=== PATIENT | male | born 1945 | race Caucasian/White ===

== ENCOUNTER 2020-12-24 04:34 | Inpatient (IN) | payer OTHER ==
[2020-12-24] MEDS ORDERED: LACTATED RINGERS SOLUTION 1000 ML INFUS.BAG IV ONE (06:03)
[2020-12-24 06:13] LABS: BASO % 0.4 % (0-2.0); EOS % 0.1 % (0-4.5); HEMATOCRIT 40.7 % (35.4-49); HEMOGLOBIN 13.8 GM/dL (11.7-16.9); LYMPH % 7.6 % (8-40); MCH 28.9 pg (25.7-33.7); MCHC 33.9 g/dl (32.0-35.9); MEAN CELL VOLUME 85.2 fl (80-96); MEAN PLT VOLUME 6.9 fl (7.5-11.1); MONO % 3.9 % (3.8-10.2); PLATELET COUNT 241 K/MM3 (134-434); RBC 4.78 M/mm3 (4.00-5.60); RDW 13.4 % (11.9-15.9); WHITE BLOOD COUNT 11.8 K/mm3 (4.0-10.0)
[2020-12-24 06:26] LABS: INR 0.97 (0.83-1.09)
[2020-12-24 06:27] LABS: POTASSIUM 4.1 mmol/L (3.5-5.1)
[2020-12-24 06:29] LABS: ACTIVATED PTT 33.6 SECONDS (25.2-36.5); CALCIUM 9.5 mg/dL (8.5-10.1)
[2020-12-24 06:30] LABS: BLOOD UREA NITROGEN 14.7 mg/dL (7-18)
[2020-12-24 06:33] LABS: CREATININE 1.2 mg/dL (0.55-1.3)
[2020-12-24 06:34] LABS: BILIRUBIN,TOTAL 0.5 mg/dL (0.2-1); TOT PROT 7.8 g/dl (6.4-8.2)
[2020-12-24] MEDS: LACTATED RINGERS SOLUTION 1,000 ML/1,000 ML INFUS.BAG IV SCH (07:30)
[2020-12-24] MEDS: ENOXAPARIN NA (PORCINE) 40 MG/0.4 ML DISP.SYRIN SQ SCH (16:06)
[2020-12-24] MEDS: PANTOPRAZOLE 40 MG TABLET PO SCH (16:06)
[2020-12-24 17:22] VITALS: BMI 21.2
[2020-12-24] MEDS: MINERAL OIL/PET HY-PHL TOPICAL OINTMENT 454 GM JAR TP SCH (21:03)
[2020-12-25 09:13] LABS: BASO % 0.7 % (0-2.0); EOS % 1.5 % (0-4.5); HEMATOCRIT 35.3 % (35.4-49); HEMOGLOBIN 11.8 GM/dL (11.7-16.9); LYMPH % 18.6 % (8-40); MCH 28.8 pg (25.7-33.7); MCHC 33.4 g/dl (32.0-35.9); MEAN CELL VOLUME 86.1 fl (80-96); MEAN PLT VOLUME 7.1 fl (7.5-11.1); MONO % 6.8 % (3.8-10.2); NEUT % 72.4 % (42.8-82.8); PLATELET COUNT 189 K/MM3 (134-434); RDW 13.6 % (11.9-15.9); WHITE BLOOD COUNT 7.7 K/mm3 (4.0-10.0)
[2020-12-25 09:23] LABS: POTASSIUM 3.8 mmol/L (3.5-5.1)
[2020-12-25 09:53] LABS: PHOSPHOROUS 3.2 mg/dL (2.5-4.9)
[2020-12-25] MEDS: LACTATED RINGERS SOLUTION 1,000 ML/1,000 ML INFUS.BAG IV SCH (10:09)
[2020-12-25] MEDS: ENOXAPARIN NA (PORCINE) 40 MG/0.4 ML DISP.SYRIN SQ SCH (10:09)
[2020-12-25 10:12] LABS: BLOOD UREA NITROGEN 12.2 mg/dL (7-18)
[2020-12-25 10:14] LABS: BILIRUBIN,TOTAL 0.8 mg/dL (0.2-1)
[2020-12-25 10:15] LABS: CREATININE 1.1 mg/dL (0.55-1.3)
[2020-12-25 10:17] LABS: TOT PROT 6.1 g/dl (6.4-8.2)
[2020-12-25 10:30] LABS: ALBUMIN 3.1 g/dl (3.4-5.0)
[2020-12-25] MEDS: PANTOPRAZOLE 40 MG TABLET PO SCH (12:50)
[2020-12-25] MEDS: MINERAL OIL/PET HY-PHL TOPICAL OINTMENT 454 GM JAR TP SCH ×2 (15:16→21:52)
[2020-12-26] MEDS ORDERED: PT OWN MED DRAWER 7, Y5N ONE (09:51)
[2020-12-26] MEDS: PANTOPRAZOLE 40 MG TABLET PO SCH (09:53)
[2020-12-26] MEDS: ENOXAPARIN NA (PORCINE) 40 MG/0.4 ML DISP.SYRIN SQ SCH (09:54)
[2020-12-26] MEDS: MINERAL OIL/PET HY-PHL TOPICAL OINTMENT 454 GM JAR TP SCH (09:56)
[2020-12-26 13:12] VITALS: PULSE 68
[2020-12-26 14:51] VITALS: BP 151/78; TEMP 98.1
== END 2020-12-26 19:04 | disposition home or self-care (01) | DRG 254 ==
LOC: JER 04:34 → JERBED 06:04 → J8W 13:57
PROVIDERS: ADMIT Internal Medicine; ATTEND Internal Medicine
PROC: 0DJ08ZZ Inspection of Upper Intestinal Tract, Via Natural or Artificial Opening Endoscopic (ICD-10-PCS; 2020-12-24)
PROC: 0DC18ZZ Extirpation of Matter from Upper Esophagus, Via Natural or Artificial Opening Endoscopic (ICD-10-PCS; 2020-12-24)
PROC: 0DB68ZX Excision of Stomach, Via Natural or Artificial Opening Endoscopic, Diagnostic (ICD-10-PCS; principal; 2020-12-24 08:15)
DX: T18.128A Food in esophagus causing other injury, initial encounter (principal); I87.8 Other specified disorders of veins; R13.10 Dysphagia, unspecified; K81.1 Chronic cholecystitis; K22.2 Esophageal obstruction; X58.XXXA Exposure to other specified factors, initial encounter; Y93.9 Activity, unspecified; Y92.89 Other specified places as the place of occurrence of the external cause; Y99.9 Unspecified external cause status
CPT/HCPCS: 36415; 70490-TC; 71250-TC; 80053; 83036; 83735; 84100; 84443; 85025; 85610; 85651; 85730; 86850; 86900; 86901; 93005; 93010; 97116-GP; 97161-GP; 99285-25; C9803; U0003

== ENCOUNTER 2021-01-30 04:46 | Day surgery (SDC) | payer OTHER ==
[2021-01-30 09:43] VITALS: BMI 19.8
[2021-01-30 12:07] VITALS: TEMP 98.5
[2021-01-30 14:30] VITALS: BP 141/77; PULSE 72
== END 2021-01-30 14:25 ==
LOC: JASU-ENDO 04:46
PROVIDERS: ATTEND Internal Medicine Gastroenterology
PROC: 0D758ZZ Dilation of Esophagus, Via Natural or Artificial Opening Endoscopic (ICD-10-PCS; 2021-01-30)
PROC: 0DB58ZX Excision of Esophagus, Via Natural or Artificial Opening Endoscopic, Diagnostic (ICD-10-PCS; principal; 2021-01-30 11:00)
DX: K22.2 Esophageal obstruction (principal); K25.9 Gastric ulcer, unspecified as acute or chronic, without hemorrhage or perforation; K44.9 Diaphragmatic hernia without obstruction or gangrene; R12 Heartburn
CPT/HCPCS: 88305-TC; 88342-TC

== ENCOUNTER 2023-08-16 12:22 | Emergency (ER) | payer OTHER ==
[2023-08-16 13:18] VITALS: RESP 20; BMI 19.8
[2023-08-16] MEDS ORDERED: ACETAMINOPHEN 1000 MG/100 ML BAG IVPB ONE (15:00)
[2023-08-16] MEDS ORDERED: ACETAMINOPHEN INJECTION 100 ML IVPB ONE (15:03)
[2023-08-16] MEDS ORDERED: oxyCODONE HCL 5 MG TABLET PO ONE (16:14)
[2023-08-17 01:57] VITALS: BP 136/76; PULSE 98; TEMP 98.6
== END 2023-08-17 02:06 | disposition home or self-care (01) ==
LOC: JER 12:22
DX: T87.9 Unspecified complications of amputation stump (principal); G89.29 Other chronic pain
CPT/HCPCS: 99283-25

== ENCOUNTER 2024-10-10 04:45 | Inpatient (IN) | payer OTHER ==
[2024-10-10] MEDS: SODIUM CHLORIDE 0.9% 1000 ML INFUS.BAG IV ONE (05:49)
[2024-10-10] MEDS: LACTATED RINGERS SOLUTION 1000 ML INFUS.BAG IV ONE (06:15)
[2024-10-10] MEDS ORDERED: PREGABALIN 50 MG CAPSULE ONE ×2 (06:17→14:53)
[2024-10-10] MEDS: PREGABALIN 50 MG CAPSULE PO ONE (06:18)
[2024-10-10 06:26] LABS: INR 1.03 (0.83-1.09); PROTHROMBIN TIME (PATIENT) 11.8 SEC (9.7-13.0)
[2024-10-10 06:29] LABS: ACTIVATED PTT 27.5 SECONDS (25.2-36.5)
[2024-10-10 06:38] LABS: POTASSIUM 3.9 mmol/L (3.5-5.1)
[2024-10-10 06:41] LABS: ALBUMIN 3.2 g/dl (3.4-5.0); BLOOD UREA NITROGEN 26.3 mg/dL (7-18); CALCIUM 8.5 mg/dL (8.5-10.1); MAGNESIUM 1.9 mg/dL (1.8-2.4)
[2024-10-10 06:44] LABS: CREATININE 0.8 mg/dL (0.55-1.3)
[2024-10-10 06:45] LABS: PHOSPHOROUS 2.3 mg/dL (2.5-4.9)
[2024-10-10 06:46] LABS: BILIRUBIN,TOTAL 0.5 mg/dL (0.2-1); TOT PROT 6.4 g/dl (6.4-8.2)
[2024-10-10 07:06] LABS: MCH 28.4 pg (25.7-33.7); MCHC 34.6 g/dl (32.0-35.9); MEAN CELL VOLUME 82.2 fl (80-96); MEAN PLT VOLUME 7.8 fl (7.5-11.1); PLATELET COUNT 322 10^3/uL (134-434); RBC 3.17 M/mm3 (4.00-5.60); RDW 13.8 % (11.9-15.9); WHITE BLOOD COUNT 9.5 K/mm3 (4.0-10.0)
[2024-10-10 09:39] LABS: ANISOCYTOSIS 0; MACROCYTOSIS 0
[2024-10-10 10:12] LABS: PH,URINE 5.5 (5.0-8.0); URINE APPEARANCE CLEAR; URINE BILIRUBIN NEGATIVE (NEGATIVE); URINE COLOR YELLOW; URINE GLUCOSE (UA) NEGATIVE (NEGATIVE); URINE KETONE 2+ (NEGATIVE); URINE LEUK ESTERASE NEGATIVE (NEGATIVE); URINE NITRITE NEGATIVE (NEGATIVE); URINE PROTEIN NEGATIVE (NEGATIVE); URINE UROBILINOGEN 0.2 mg/dL (0.2-1.0)
[2024-10-10] MEDS ORDERED: morphine SULFATE IMMEDIATE RELEASE 30 MG TAB PO PRN (12:08)
[2024-10-10] MEDS: PREGABALIN 50 MG CAPSULE PO SCH (14:56)
[2024-10-10] MEDS: DULoxetine HCL 20 MG CAPSULE.DR PO ONE (16:36)
[2024-10-10 20:41] VITALS: BMI 20.2
[2024-10-10] MEDS: ATORVASTATIN CA 20 MG TABLET (FP) PO SCH (22:19)
[2024-10-11] MEDS: PREGABALIN 50 MG CAPSULE PO ONE (07:31)
[2024-10-11 08:43] LABS: BASO % 0.7 % (0-2.0); EOS % 0.4 % (0-4.5); HEMATOCRIT 23.6 % (35.4-49); HEMOGLOBIN 7.8 GM/dL (11.7-16.9); LYMPH % 15.8 % (8-40); MCH 27.4 pg (25.7-33.7); MCHC 32.9 g/dl (32.0-35.9); MEAN CELL VOLUME 83.4 fl (80-96); MEAN PLT VOLUME 7.6 fl (7.5-11.1); MONO % 8.5 % (3.8-10.2); NEUT % 74.6 % (42.8-82.8); PLATELET COUNT 401 10^3/uL (134-434); RBC 2.83 M/mm3 (4.00-5.60); RDW 13.7 % (11.9-15.9); WHITE BLOOD COUNT 7.5 K/mm3 (4.0-10.0)
[2024-10-11 09:01] LABS: POTASSIUM 3.4 mmol/L (3.5-5.1)
[2024-10-11 09:08] LABS: CALCIUM 8.4 mg/dL (8.5-10.1)
[2024-10-11 09:09] LABS: BLOOD UREA NITROGEN 13.8 mg/dL (7-18); MAGNESIUM 2.1 mg/dL (1.8-2.4)
[2024-10-11 09:11] LABS: CREATININE 0.7 mg/dL (0.55-1.3)
[2024-10-11 09:13] LABS: BILIRUBIN,TOTAL 0.5 mg/dL (0.2-1); TOT PROT 5.9 g/dl (6.4-8.2)
[2024-10-11] MEDS: PANTOPRAZOLE 40 MG TABLET PO SCH (10:49)
[2024-10-11] MEDS: DULoxetine HCL 20 MG CAPSULE.DR PO SCH (10:58)
[2024-10-11] MEDS: MULTIVITAMINS THER W-MINERALS COMBO TABLET (FP) PO SCH (17:52)
[2024-10-11] MEDS: MINERAL OIL/PET HY-PHL TOPICAL OINTMENT 454 GM JAR TP SCH (19:44)
[2024-10-11] MEDS: IRON SUCROSE INJECTION 200 MG in SODIUM CHLORIDE 100 ML IVPB ONE (20:33)
[2024-10-12 09:26] LABS: HEMATOCRIT 23.2 % (35.4-49); HEMOGLOBIN 7.8 GM/dL (11.7-16.9); MCH 27.6 pg (25.7-33.7); MCHC 33.5 g/dl (32.0-35.9); MEAN CELL VOLUME 82.2 fl (80-96); MEAN PLT VOLUME 7.8 fl (7.5-11.1); PLATELET COUNT 460 10^3/uL (134-434); RBC 2.82 M/mm3 (4.00-5.60); RDW 13.4 % (11.9-15.9); WHITE BLOOD COUNT 8.2 K/mm3 (4.0-10.0)
[2024-10-12 09:43] LABS: POTASSIUM 3.3 mmol/L (3.5-5.1)
[2024-10-12 09:49] LABS: BLOOD UREA NITROGEN 8.7 mg/dL (7-18); CALCIUM 8.9 mg/dL (8.5-10.1); MAGNESIUM 2.1 mg/dL (1.8-2.4)
[2024-10-12 09:52] LABS: CREATININE 0.8 mg/dL (0.55-1.3)
[2024-10-12 09:53] LABS: BILIRUBIN,TOTAL 0.4 mg/dL (0.2-1); TOT PROT 6.1 g/dl (6.4-8.2)
[2024-10-12 10:28] LABS: ANISOCYTOSIS 0; MACROCYTOSIS 0; OVALOCYTE 1+
[2024-10-12] MEDS: POTASSIUM CHLORIDE ORAL LIQUID 20 MEQ/15 ML PO ONE (12:07)
[2024-10-12] MEDS: SODIUM CHLORIDE 1,000 ML IV SCH ×2 (12:08→14:03)
[2024-10-12] MEDS ORDERED: SODIUM CHLORIDE 1,000 ML IV SCH (12:54)
[2024-10-12] MEDS: IRON SUCROSE INJECTION 100 MG in SODIUM CHLORIDE 95 ML IVPB ONE (21:09)
[2024-10-13 08:08] LABS: CARCINOEMBRYONIC ANTIGEN 1.6 ng/mL (0.0-4.7)
[2024-10-13 08:39] LABS: HEMATOCRIT 22.5 % (35.4-49); HEMOGLOBIN 7.4 GM/dL (11.7-16.9); MCH 27.7 pg (25.7-33.7); MCHC 33.1 g/dl (32.0-35.9); MEAN CELL VOLUME 83.8 fl (80-96); MEAN PLT VOLUME 7.7 fl (7.5-11.1); PLATELET COUNT 442 10^3/uL (134-434); RBC 2.68 M/mm3 (4.00-5.60); RDW 14.1 % (11.9-15.9); WHITE BLOOD COUNT 7.9 K/mm3 (4.0-10.0)
[2024-10-13 08:48] LABS: POTASSIUM 3.7 mmol/L (3.5-5.1)
[2024-10-13 08:57] LABS: ALBUMIN 2.4 g/dl (3.4-5.0); CALCIUM 8.3 mg/dL (8.5-10.1)
[2024-10-13 08:58] LABS: BLOOD UREA NITROGEN 5.8 mg/dL (7-18); MAGNESIUM 1.9 mg/dL (1.8-2.4)
[2024-10-13 09:01] LABS: CREATININE 0.7 mg/dL (0.55-1.3)
[2024-10-13 09:02] LABS: BILIRUBIN,TOTAL 0.2 mg/dL (0.2-1)
[2024-10-13 09:47] LABS: ANISOCYTOSIS 1+; MACROCYTOSIS 0
[2024-10-13 16:07] LABS: GLIADIN ANTIBODY IGA 12 units (0-19); GLIADIN ANTIBODY IGG 3 units (0-19); TRANSGLUTAMINASE IGG 3 U/mL (0-5)
[2024-10-13] MEDS: IRON SUCROSE INJECTION 200 MG in SODIUM CHLORIDE 100 ML IVPB ONE (18:47)
[2024-10-14 09:28] LABS: MCH 28.2 pg (25.7-33.7); MCHC 33.7 g/dl (32.0-35.9); MEAN CELL VOLUME 83.7 fl (80-96); MEAN PLT VOLUME 7.4 fl (7.5-11.1); PLATELET COUNT 438 10^3/uL (134-434); RBC 2.39 M/mm3 (4.00-5.60); RDW 14.1 % (11.9-15.9); WHITE BLOOD COUNT 7.9 K/mm3 (4.0-10.0)
[2024-10-14 09:32] LABS: HEMOGLOBIN 6.8 GM/dL (11.7-16.9)
[2024-10-14 09:50] LABS: POTASSIUM 4.1 mmol/L (3.5-5.1)
[2024-10-14] MEDS ORDERED: PANTOPRAZOLE SODIUM 40 MG in SODIUM CHLORIDE 100 ML IVPB SCH (10:15)
[2024-10-14 10:18] LABS: CREATININE 0.8 mg/dL (0.55-1.3)
[2024-10-14 10:19] LABS: ALBUMIN 2.4 g/dl (3.4-5.0); CALCIUM 8.5 mg/dL (8.5-10.1); MAGNESIUM 1.9 mg/dL (1.8-2.4)
[2024-10-14 10:20] LABS: BILIRUBIN,TOTAL 0.4 mg/dL (0.2-1); TOT PROT 5.2 g/dl (6.4-8.2)
[2024-10-14 10:57] LABS: ANISOCYTOSIS 0; HELMET CELLS 0; HOWELL-JOLLY BODIES 0; MACROCYTOSIS 0; OVALOCYTE 0; ROULEAU 0; SICKELED CELLS 0; TARGET CELLS 0; TEAR DROP CELLS 0; TOXIC GRANULATION 0
[2024-10-14] MEDS: PANTOPRAZOLE SODIUM 40 MG in SODIUM CHLORIDE 100 ML IVPB ONE (12:32)
[2024-10-14] MEDS: PANTOPRAZOLE SODIUM 80 MG in SODIUM CHLORIDE 100 ML IVPB SCH (12:33)
[2024-10-14] MEDS: PANTOPRAZOLE SODIUM 40 MG VIAL IVPUSH SCH (20:36)
[2024-10-14 21:37] LABS: BASO % 0.7 % (0-2.0); EOS % 2.8 % (0-4.5); HEMATOCRIT 25.8 % (35.4-49); HEMOGLOBIN 8.4 GM/dL (11.7-16.9); LYMPH % 18.3 % (8-40); MCH 27.4 pg (25.7-33.7); MCHC 32.7 g/dl (32.0-35.9); MEAN CELL VOLUME 83.6 fl (80-96); MEAN PLT VOLUME 7.5 fl (7.5-11.1); NEUT % 68.2 % (42.8-82.8); PLATELET COUNT 465 10^3/uL (134-434); RBC 3.08 M/mm3 (4.00-5.60); RDW 15.7 % (11.9-15.9); WHITE BLOOD COUNT 9.8 K/mm3 (4.0-10.0)
[2024-10-15 09:33] LABS: BASO % 1.3 % (0-2.0); EOS % 2.5 % (0-4.5); HEMATOCRIT 25.2 % (35.4-49); HEMOGLOBIN 8.4 GM/dL (11.7-16.9); LYMPH % 15.1 % (8-40); MCH 27.8 pg (25.7-33.7); MCHC 33.2 g/dl (32.0-35.9); MEAN CELL VOLUME 83.7 fl (80-96); MEAN PLT VOLUME 7.7 fl (7.5-11.1); MONO % 9.1 % (3.8-10.2); PLATELET COUNT 447 10^3/uL (134-434); RBC 3.01 M/mm3 (4.00-5.60); RDW 15.7 % (11.9-15.9); WHITE BLOOD COUNT 8.8 K/mm3 (4.0-10.0)
[2024-10-15] MEDS ORDERED: PANTOPRAZOLE SODIUM 40 MG in SODIUM CHLORIDE 100 ML IVPB SCH (10:00)
[2024-10-15 10:09] LABS: ALBUMIN 2.5 g/dl (3.4-5.0)
[2024-10-15 10:10] LABS: CALCIUM 8.4 mg/dL (8.5-10.1); MAGNESIUM 1.9 mg/dL (1.8-2.4)
[2024-10-15 10:12] LABS: BLOOD UREA NITROGEN 6.8 mg/dL (7-18); CREATININE 0.9 mg/dL (0.55-1.3)
[2024-10-15 10:14] LABS: BILIRUBIN,TOTAL 0.3 mg/dL (0.2-1); TOT PROT 5.3 g/dl (6.4-8.2)
[2024-10-15] MEDS: PEG 3350/NA SULF BICARB CL/KCL 4000 ML SOLN.RECON PO ONE (15:40)
[2024-10-16 08:38] LABS: BASO % 0.8 % (0-2.0); EOS % 2.5 % (0-4.5); HEMOGLOBIN 8.9 GM/dL (11.7-16.9); LYMPH % 15.7 % (8-40); MCH 27.6 pg (25.7-33.7); MCHC 32.9 g/dl (32.0-35.9); MEAN CELL VOLUME 83.9 fl (80-96); MEAN PLT VOLUME 7.3 fl (7.5-11.1); PLATELET COUNT 440 10^3/uL (134-434); RBC 3.22 M/mm3 (4.00-5.60); RDW 15.8 % (11.9-15.9); WHITE BLOOD COUNT 7.7 K/mm3 (4.0-10.0)
[2024-10-16 08:46] LABS: INR 1.05 (0.83-1.09); PROTHROMBIN TIME (PATIENT) 11.9 SEC (9.7-13.0)
[2024-10-16 09:08] LABS: POTASSIUM 3.9 mmol/L (3.5-5.1)
[2024-10-16 09:15] LABS: ALBUMIN 2.5 g/dl (3.4-5.0); BLOOD UREA NITROGEN 5.9 mg/dL (7-18); CALCIUM 8.6 mg/dL (8.5-10.1)
[2024-10-16 09:18] LABS: CREATININE 0.8 mg/dL (0.55-1.3)
[2024-10-16 09:20] LABS: BILIRUBIN,TOTAL 0.5 mg/dL (0.2-1); TOT PROT 5.3 g/dl (6.4-8.2)
[2024-10-16] MEDS: POLYETHYLENE GLYCOL (HEALTHYLAX) 3350 17 GM PACKET PO ONE (09:38)
[2024-10-16] MEDS: POLYETHYLENE GLYCOL 3350 255 GM BTL PO ONE (12:08)
[2024-10-16] MEDS: BISACODYL 5 MG TABLET.DR (FP) PO ONE (23:03)
[2024-10-17 09:50] LABS: BASO % 0.8 % (0-2.0); EOS % 1.9 % (0-4.5); HEMATOCRIT 30.3 % (35.4-49); LYMPH % 15.3 % (8-40); MCH 27.9 pg (25.7-33.7); MEAN CELL VOLUME 84.6 fl (80-96); MEAN PLT VOLUME 7.1 fl (7.5-11.1); MONO % 7.2 % (3.8-10.2); NEUT % 74.8 % (42.8-82.8); PLATELET COUNT 431 10^3/uL (134-434); RBC 3.59 M/mm3 (4.00-5.60); RDW 16.3 % (11.9-15.9); WHITE BLOOD COUNT 7.4 K/mm3 (4.0-10.0)
[2024-10-17 10:18] LABS: POTASSIUM 3.7 mmol/L (3.5-5.1)
[2024-10-17 10:33] LABS: ALBUMIN 2.7 g/dl (3.4-5.0); CALCIUM 8.8 mg/dL (8.5-10.1)
[2024-10-17 10:34] LABS: BLOOD UREA NITROGEN 4.9 mg/dL (7-18)
[2024-10-17 10:38] LABS: CREATININE 0.8 mg/dL (0.55-1.3)
[2024-10-17 10:39] LABS: BILIRUBIN,TOTAL 0.5 mg/dL (0.2-1); TOT PROT 5.8 g/dl (6.4-8.2)
[2024-10-17] MEDS: PANTOPRAZOLE 40 MG TABLET PO SCH (22:58)
[2024-10-18 11:40] LABS: EOS % 3.3 % (0-4.5); HEMATOCRIT 27.6 % (35.4-49); HEMOGLOBIN 8.9 GM/dL (11.7-16.9); LYMPH % 17.1 % (8-40); MCH 27.6 pg (25.7-33.7); MCHC 32.3 g/dl (32.0-35.9); MEAN CELL VOLUME 85.6 fl (80-96); MEAN PLT VOLUME 7.2 fl (7.5-11.1); MONO % 5.8 % (3.8-10.2); NEUT % 72.8 % (42.8-82.8); PLATELET COUNT 414 10^3/uL (134-434); RBC 3.23 M/mm3 (4.00-5.60); RDW 15.8 % (11.9-15.9); WHITE BLOOD COUNT 6.7 K/mm3 (4.0-10.0)
[2024-10-18 11:55] LABS: POTASSIUM 3.9 mmol/L (3.5-5.1)
[2024-10-18 11:57] LABS: ALBUMIN 2.6 g/dl (3.4-5.0)
[2024-10-18 11:58] LABS: BLOOD UREA NITROGEN 5.3 mg/dL (7-18); MAGNESIUM 1.9 mg/dL (1.8-2.4)
[2024-10-18 12:00] LABS: CALCIUM 8.5 mg/dL (8.5-10.1)
[2024-10-18 12:01] LABS: CREATININE 0.9 mg/dL (0.55-1.3)
[2024-10-18 12:02] LABS: BILIRUBIN,TOTAL 0.3 mg/dL (0.2-1); TOT PROT 5.6 g/dl (6.4-8.2)
[2024-10-19 09:48] VITALS: RESP 20
[2024-10-19 09:48] LABS: EOS % 2.4 % (0-4.5); HEMATOCRIT 25.2 % (35.4-49); HEMOGLOBIN 8.6 GM/dL (11.7-16.9); MCH 29.7 pg (25.7-33.7); MCHC 34.3 g/dl (32.0-35.9); MEAN CELL VOLUME 86.6 fl (80-96); MEAN PLT VOLUME 7.1 fl (7.5-11.1); MONO % 8.9 % (3.8-10.2); NEUT % 70.7 % (42.8-82.8); PLATELET COUNT 353 10^3/uL (134-434); RBC 2.91 M/mm3 (4.00-5.60); RDW 16.2 % (11.9-15.9); WHITE BLOOD COUNT 5.7 K/mm3 (4.0-10.0)
[2024-10-19 10:03] LABS: POTASSIUM 3.9 mmol/L (3.5-5.1)
[2024-10-19 10:11] LABS: CALCIUM 8.7 mg/dL (8.5-10.1)
[2024-10-19 10:12] LABS: ALBUMIN 2.6 g/dl (3.4-5.0); BLOOD UREA NITROGEN 8.6 mg/dL (7-18); MAGNESIUM 1.9 mg/dL (1.8-2.4)
[2024-10-19 10:16] LABS: TOT PROT 5.6 g/dl (6.4-8.2)
[2024-10-19 10:18] LABS: BILIRUBIN,TOTAL 0.4 mg/dL (0.2-1)
[2024-10-19 17:04] VITALS: BP 112/65; PULSE 78; TEMP 98.5
== END 2024-10-19 14:07 | disposition home or self-care (01) | DRG 241 ==
LOC: JER 04:45 → JERBED 10:57 → OBSVTOIN 16:35 → J8W 19:49
PROVIDERS: ADMIT Internal Medicine; ATTEND Internal Medicine
PROC: 0DB98ZX Excision of Duodenum, Via Natural or Artificial Opening Endoscopic, Diagnostic (ICD-10-PCS; 2024-10-17)
PROC: 0DB68ZX Excision of Stomach, Via Natural or Artificial Opening Endoscopic, Diagnostic (ICD-10-PCS; 2024-10-17)
PROC: 0W3P8ZZ Control Bleeding in Gastrointestinal Tract, Via Natural or Artificial Opening Endoscopic (ICD-10-PCS; 2024-10-17)
PROC: 0DJD8ZZ Inspection of Lower Intestinal Tract, Via Natural or Artificial Opening Endoscopic (ICD-10-PCS; principal; 2024-10-17 12:45)
DX: K26.4 Chronic or unspecified duodenal ulcer with hemorrhage (principal); D62 Acute posthemorrhagic anemia; E78.5 Hyperlipidemia, unspecified; I10 Essential (primary) hypertension; I73.9 Peripheral vascular disease, unspecified; G89.29 Other chronic pain; K44.9 Diaphragmatic hernia without obstruction or gangrene; Z89.511 Acquired absence of right leg below knee
CPT/HCPCS: 0241U-QW; 36415; 36430; 71045-TC-FY; 74177-TC; 80053; 81003; 82272; 82378; 82607; 82728; 82746; 82784; 82962; 83516; 83540; 83550; 83735; 84100; 85025; 85045; 85610; 85730; 86140; 86850; 86900; 86901; 86922; 87045; 87046; 87086; 87635; 88305-TC; 88342-TC; 93005; 93010; 97116-GP; 97162-GP; 99285-25; G0378; J1756; P9058; Q9967

== ENCOUNTER 2025-02-11 15:44 | Inpatient (IN) | payer OTHER ==
[2025-02-11 17:47] LABS: VENOUS BASE EXCESS 5.6 mmol/L (-2-2); VENOUS O2 SATURATION 64.2 % (70-80); VENOUS PCO2 40.2 mmHg (38-52); VENOUS PH 7.483 (7.310-7.410)
[2025-02-11 17:50] LABS: HEMATOCRIT 29.8 % (40.1-51.0); HEMOGLOBIN 9.2 g/dL (13.7-17.5); MCHC 30.9 g/dl (32.3-36.5); MEAN CELL VOLUME 84.4 fl (79.0-92.2); MEAN PLT VOLUME 9.6 fl (9.4-12.4); PLATELET COUNT 700 x10^3/uL (163-337); RDW 14.3 % (12.2-16.6)
[2025-02-11 18:10] LABS: POTASSIUM 4.3 mmol/L (3.5-5.1)
[2025-02-11 18:12] LABS: ALBUMIN 2.1 g/dl (3.4-5.0); BLOOD UREA NITROGEN 13.9 mg/dL (7-18); CALCIUM 9.1 mg/dL (8.5-10.1); MAGNESIUM 2.4 mg/dL (1.8-2.4)
[2025-02-11 18:16] LABS: CREATININE 0.7 mg/dL (0.55-1.3)
[2025-02-11 18:17] LABS: BILIRUBIN,TOTAL 0.5 mg/dL (0.2-1); INR 1.29 (0.83-1.09); PROTHROMBIN TIME (PATIENT) 14.2 SEC (9.7-13.0); TOT PROT 6.3 g/dl (6.4-8.2)
[2025-02-11 18:20] LABS: ACTIVATED PTT 35.3 SECONDS (25.2-36.5); N-TERMINAL BNP 557.7 pg/ml (5-450)
[2025-02-11] MEDS ORDERED: PIPERACILLIN/TAZOB 4.5 GM 4.5 GM/100 ML BAG IVPB ONE (19:04)
[2025-02-11 19:07] LABS: HCV DIAGNOSTIC IN-HOUSE W/RFLX NON-REACTIVE (NONREACTIVE); HIV INTERPRETATION NEGATIVE (NEGATIVE)
[2025-02-11] MEDS: PIPERACILLIN/TAZOB 4.5 GM 4.5 GM in DEXTROSE 5%-WATER 100 ML IVPB ONE (19:18)
[2025-02-11] MEDS ORDERED: VANCOMYCIN 1 GM PREMIX (F) 1 GM/200 ML BAG ONE (19:53)
[2025-02-11] MEDS: VANCOMYCIN 1,000 MG in DEXTROSE 5%-WATER - 250 ML IVPB ONE (20:01)
[2025-02-11 20:27] LABS: EPI CELLS 11 /uL (0-25.1); HYALINE CASTS 1 /uL (0-3.1); PH,URINE 5.5 (5.0-8.0); URINE APPEARANCE CLEAR; URINE BACTERIA 3 /uL (0-1359); URINE BILIRUBIN NEGATIVE (NEGATIVE); URINE COLOR YELLOW; URINE GLUCOSE (UA) NEGATIVE (NEGATIVE); URINE KETONE 2+ (NEGATIVE); URINE LEUK ESTERASE NEGATIVE (NEGATIVE); URINE NITRITE NEGATIVE (NEGATIVE); URINE PROTEIN 2+ (NEGATIVE); URINE WBC 18 /uL (0-25.8)
[2025-02-11 20:45] LABS: URINE RBC 77.3 /uL (0-23.9)
[2025-02-11] MEDS: LACTATED RINGERS SOLUTION 1,000 ML/1,000 ML INFUS.BAG IV STA (22:16)
[2025-02-12] MEDS ORDERED: PREGABALIN 50 MG CAPSULE ONE (00:21)
[2025-02-12] MEDS: PREGABALIN 50 MG CAPSULE PO SCH (00:28)
[2025-02-12] MEDS ORDERED: morphine SULFATE IMMEDIATE RELEASE 30 MG TAB PO PRN (08:25)
[2025-02-12] MEDS: PANTOPRAZOLE 40 MG TABLET PO SCH (09:25)
[2025-02-12] MEDS: VANCOMYCIN/WATER FOR INJ (PEG) 1,000 MG/200 ML BAG IVPB SCH ×2 (09:25→21:10)
[2025-02-12 09:33] LABS: ABSOLUTE IMMATURE GRANULOCYTES 0.25 x10^3/uL (0.0-0.031); BASOPHILS # 0.03 x10^3/uL (0.01-0.08); EOSINOPHIL % 0.1 % (0.8-7.0); EOSINOPHILS # 0.01 x10^3/uL (0.04-0.54); HEMATOCRIT 30.4 % (40.1-51.0); HEMOGLOBIN 9.3 g/dL (13.7-17.5); MCHC 30.6 g/dl (32.3-36.5); MEAN CELL VOLUME 83.7 fl (79.0-92.2); MEAN PLT VOLUME 9.6 fl (9.4-12.4); MONOCYTE # 0.81 x10^3/uL (0.30-0.82); MONOCYTE % 4.8 % (5.3-12.2); PLATELET COUNT 579 x10^3/uL (163-337); RDW 14.3 % (12.2-16.6)
[2025-02-12 10:23] LABS: BLOOD UREA NITROGEN 12.6 mg/dL (7-18); CALCIUM 8.8 mg/dL (8.5-10.1)
[2025-02-12 10:27] LABS: CREATININE 0.7 mg/dL (0.55-1.3)
[2025-02-12] MEDS: DULoxetine HCL 20 MG CAPSULE.DR PO SCH (10:28)
[2025-02-12 14:08] LABS: ALBUMIN 1.7 g/dl (3.4-5.0)
[2025-02-12 14:11] LABS: BILIRUBIN,DIRECT 0.2 mg/dL (0.0-0.2)
[2025-02-12 14:13] LABS: BILIRUBIN,TOTAL 0.5 mg/dL (0.2-1); TOT PROT 5.4 g/dl (6.4-8.2)
[2025-02-12] MEDS ORDERED: CEFEPIME HCL 2 GM VIAL (RESTRICTED TO ID) IVPB SCH (18:00)
[2025-02-12] MEDS: VANCOMYCIN 1,000 MG in DEXTROSE 5%-WATER - 250 ML IVPB SCH (19:12)
[2025-02-12] MEDS: PIPERACILLIN/TAZOB 4.5 GM 4.5 GM in DEXTROSE 5%-WATER 100 ML IVPB SCH (19:13)
[2025-02-12] MEDS: CEFEPIME 2 GM in DEXTROSE 5%-WATER 100 ML IVPB SCH (19:24)
[2025-02-12] MEDS: ATORVASTATIN CA 20 MG TABLET (FP) PO SCH (21:09)
[2025-02-13 08:50] LABS: ABSOLUTE IMMATURE GRANULOCYTES 0.47 x10^3/uL (0.0-0.031); BASOPHILS # 0.05 x10^3/uL (0.01-0.08); EOSINOPHIL % 0.4 % (0.8-7.0); EOSINOPHILS # 0.06 x10^3/uL (0.04-0.54); HEMATOCRIT 30.1 % (40.1-51.0); HEMOGLOBIN 9.2 g/dL (13.7-17.5); MCHC 30.6 g/dl (32.3-36.5); MEAN CELL VOLUME 83.6 fl (79.0-92.2); MEAN PLT VOLUME 9.7 fl (9.4-12.4); MONOCYTE # 0.85 x10^3/uL (0.30-0.82); MONOCYTE % 5.1 % (5.3-12.2); PLATELET COUNT 586 x10^3/uL (163-337); RDW 14.4 % (12.2-16.6)
[2025-02-13 09:14] LABS: POTASSIUM 3.9 mmol/L (3.5-5.1)
[2025-02-13 09:25] LABS: CALCIUM 8.8 mg/dL (8.5-10.1)
[2025-02-13 09:26] LABS: ALBUMIN 1.6 g/dl (3.4-5.0); BLOOD UREA NITROGEN 9.3 mg/dL (7-18)
[2025-02-13 09:28] LABS: CREATININE 0.7 mg/dL (0.55-1.3)
[2025-02-13 09:30] LABS: BILIRUBIN,TOTAL 0.4 mg/dL (0.2-1); TOT PROT 5.4 g/dl (6.4-8.2)
[2025-02-13] MEDS: PANTOPRAZOLE 40 MG TABLET PO SCH (10:22)
[2025-02-13 14:43] LABS: HEPATITIS B SURF AG NON-MATERN NON-REACTIVE (NONREACTIVE)
[2025-02-13] MEDS ORDERED: ACETAMINOPHEN 325 MG TABLET (FP) PO PRN (17:32)
[2025-02-13] MEDS: VITAMIN B COMPLEX W/C COMBO TABLET (FP) PO SCH (18:38)
[2025-02-14 09:42] LABS: ABSOLUTE IMMATURE GRANULOCYTES 0.34 x10^3/uL (0.0-0.031); BASOPHILS # 0.09 x10^3/uL (0.01-0.08); EOSINOPHIL % 0.9 % (0.8-7.0); EOSINOPHILS # 0.15 x10^3/uL (0.04-0.54); HEMATOCRIT 32.7 % (40.1-51.0); HEMOGLOBIN 9.8 g/dL (13.7-17.5); MEAN CELL VOLUME 84.3 fl (79.0-92.2); MEAN PLT VOLUME 9.5 fl (9.4-12.4); MONOCYTE # 0.71 x10^3/uL (0.30-0.82); MONOCYTE % 4.1 % (5.3-12.2); PLATELET COUNT 638 x10^3/uL (163-337); RDW 14.4 % (12.2-16.6)
[2025-02-14 10:17] LABS: Reticulocyte % 1.18 % (0.51-1.81)
[2025-02-14 10:49] LABS: POTASSIUM 4.1 mmol/L (3.5-5.1)
[2025-02-14 10:59] LABS: CALCIUM 8.8 mg/dL (8.5-10.1)
[2025-02-14 11:00] LABS: ALBUMIN 1.6 g/dl (3.4-5.0); BLOOD UREA NITROGEN 10.8 mg/dL (7-18)
[2025-02-14 11:03] LABS: CREATININE 0.7 mg/dL (0.55-1.3)
[2025-02-14 11:04] LABS: BILIRUBIN,TOTAL 0.5 mg/dL (0.2-1); TOT PROT 5.7 g/dl (6.4-8.2)
[2025-02-15 08:38] LABS: ABSOLUTE IMMATURE GRANULOCYTES 0.45 x10^3/uL (0.0-0.031); EOSINOPHIL % 1.5 % (0.8-7.0); EOSINOPHILS # 0.25 x10^3/uL (0.04-0.54); HEMATOCRIT 32.7 % (40.1-51.0); HEMOGLOBIN 9.9 g/dL (13.7-17.5); MCHC 30.3 g/dl (32.3-36.5); MEAN CELL VOLUME 84.3 fl (79.0-92.2); MEAN PLT VOLUME 9.4 fl (9.4-12.4); MONOCYTE # 0.69 x10^3/uL (0.30-0.82); PLATELET COUNT 661 x10^3/uL (163-337); RDW 14.4 % (12.2-16.6)
[2025-02-15 08:59] LABS: POTASSIUM 4.2 mmol/L (3.5-5.1)
[2025-02-15 09:17] LABS: ALBUMIN 1.7 g/dl (3.4-5.0); BLOOD UREA NITROGEN 11.7 mg/dL (7-18); CALCIUM 9.1 mg/dL (8.5-10.1); MAGNESIUM 2.1 mg/dL (1.8-2.4)
[2025-02-15 09:21] LABS: CREATININE 0.8 mg/dL (0.55-1.3)
[2025-02-15 09:22] LABS: BILIRUBIN,TOTAL 0.4 mg/dL (0.2-1); TOT PROT 6.1 g/dl (6.4-8.2)
[2025-02-15] MEDS: ENOXAPARIN NA (PORCINE) 30 MG/0.3 ML DISP.SYRIN SQ SCH (13:04)
[2025-02-16] MEDS: PANTOPRAZOLE 40 MG TABLET PO SCH (10:12)
[2025-02-16 10:37] LABS: ABSOLUTE IMMATURE GRANULOCYTES 0.64 x10^3/uL (0.0-0.031); BASOPHILS # 0.13 x10^3/uL (0.01-0.08); EOSINOPHIL % 2.3 % (0.8-7.0); EOSINOPHILS # 0.38 x10^3/uL (0.04-0.54); HEMATOCRIT 35.1 % (40.1-51.0); HEMOGLOBIN 10.3 g/dL (13.7-17.5); MCHC 29.3 g/dl (32.3-36.5); MEAN PLT VOLUME 9.8 fl (9.4-12.4); MONOCYTE # 0.72 x10^3/uL (0.30-0.82); MONOCYTE % 4.3 % (5.3-12.2); PLATELET COUNT 692 x10^3/uL (163-337); RDW 14.4 % (12.2-16.6)
[2025-02-16 10:55] LABS: POTASSIUM 4.7 mmol/L (3.5-5.1)
[2025-02-16 11:02] LABS: CALCIUM 9.2 mg/dL (8.5-10.1)
[2025-02-16 11:03] LABS: ALBUMIN 1.8 g/dl (3.4-5.0); BLOOD UREA NITROGEN 12.3 mg/dL (7-18)
[2025-02-16 11:07] LABS: BILIRUBIN,TOTAL 0.3 mg/dL (0.2-1); CREATININE 0.7 mg/dL (0.55-1.3); TOT PROT 6.3 g/dl (6.4-8.2)
[2025-02-16 12:38] VITALS: BMI 18.4
[2025-02-16] MEDS: MULTIVITAMINS THER W-MINERALS COMBO TABLET (FP) PO SCH (14:25)
[2025-02-17 09:10] LABS: ABSOLUTE IMMATURE GRANULOCYTES 0.81 x10^3/uL (0.0-0.031); BASOPHILS # 0.14 x10^3/uL (0.01-0.08); EOSINOPHIL % 2.9 % (0.8-7.0); EOSINOPHILS # 0.49 x10^3/uL (0.04-0.54); HEMATOCRIT 31.8 % (40.1-51.0); HEMOGLOBIN 9.4 g/dL (13.7-17.5); MCHC 29.6 g/dl (32.3-36.5); MEAN CELL VOLUME 85.7 fl (79.0-92.2); MEAN PLT VOLUME 9.9 fl (9.4-12.4); MONOCYTE # 0.73 x10^3/uL (0.30-0.82); MONOCYTE % 4.3 % (5.3-12.2); PLATELET COUNT 678 x10^3/uL (163-337); RDW 14.6 % (12.2-16.6)
[2025-02-17 09:39] LABS: POTASSIUM 4.5 mmol/L (3.5-5.1)
[2025-02-17 09:43] LABS: BLOOD UREA NITROGEN 12.7 mg/dL (7-18); MAGNESIUM 2.3 mg/dL (1.8-2.4)
[2025-02-17 09:46] LABS: CREATININE 0.6 mg/dL (0.55-1.3)
[2025-02-18 08:58] LABS: HEMATOCRIT 33.3 % (40.1-51.0); HEMOGLOBIN 9.9 g/dL (13.7-17.5); MCHC 29.7 g/dl (32.3-36.5); MEAN CELL VOLUME 85.8 fl (79.0-92.2); MEAN PLT VOLUME 9.9 fl (9.4-12.4); PLATELET COUNT 682 x10^3/uL (163-337); RDW 14.6 % (12.2-16.6)
[2025-02-18 09:17] LABS: POTASSIUM 4.6 mmol/L (3.5-5.1)
[2025-02-18 09:27] LABS: ALBUMIN 1.9 g/dl (3.4-5.0); BLOOD UREA NITROGEN 14.7 mg/dL (7-18); CALCIUM 9.5 mg/dL (8.5-10.1)
[2025-02-18 09:30] LABS: CREATININE 0.8 mg/dL (0.55-1.3)
[2025-02-18 09:31] LABS: BILIRUBIN,TOTAL 0.3 mg/dL (0.2-1)
[2025-02-18 09:32] LABS: TOT PROT 6.5 g/dl (6.4-8.2)
[2025-02-18 18:14] VITALS: RESP 18
[2025-02-19 09:27] LABS: HEMATOCRIT 34.7 % (40.1-51.0); MCHC 28.8 g/dl (32.3-36.5); MEAN CELL VOLUME 86.1 fl (79.0-92.2); MEAN PLT VOLUME 9.9 fl (9.4-12.4); PLATELET COUNT 654 x10^3/uL (163-337); RDW 14.5 % (12.2-16.6)
[2025-02-19 09:58] LABS: POTASSIUM 4.4 mmol/L (3.5-5.1)
[2025-02-19 10:03] LABS: ALBUMIN 2.1 g/dl (3.4-5.0); BLOOD UREA NITROGEN 13.5 mg/dL (7-18)
[2025-02-19 10:06] LABS: CREATININE 0.7 mg/dL (0.55-1.3)
[2025-02-19 10:07] LABS: BILIRUBIN,TOTAL 0.4 mg/dL (0.2-1)
[2025-02-19 10:08] LABS: TOT PROT 6.9 g/dl (6.4-8.2)
[2025-02-19] MEDS ORDERED: morphine SO4 SUSTAINED ACTING 15 MG TABLET.SA PO SCH (12:00)
[2025-02-19] MEDS: PREGABALIN 50 MG CAPSULE PO ONE (12:22)
[2025-02-19] MEDS: PREGABALIN 50 MG CAPSULE PO SCH (15:13)
[2025-02-20] MEDS: DOCUSATE SODIUM 100 MG CAPSULE (FP) PO PRN (01:00)
[2025-02-20] MEDS: SENNOSIDES 8.6MG TABLET (FP) PO PRN (01:15)
[2025-02-20 08:54] LABS: ABSOLUTE IMMATURE GRANULOCYTES 0.59 x10^3/uL (0.0-0.031); BASOPHILS # 0.13 x10^3/uL (0.01-0.08); EOSINOPHIL % 2.5 % (0.8-7.0); EOSINOPHILS # 0.32 x10^3/uL (0.04-0.54); HEMATOCRIT 34.1 % (40.1-51.0); MCHC 29.3 g/dl (32.3-36.5); MEAN CELL VOLUME 85.3 fl (79.0-92.2); MEAN PLT VOLUME 9.8 fl (9.4-12.4); MONOCYTE # 0.62 x10^3/uL (0.30-0.82); MONOCYTE % 4.9 % (5.3-12.2); PLATELET COUNT 637 x10^3/uL (163-337); RDW 14.4 % (12.2-16.6)
[2025-02-20] MEDS: morphine SO4 SUSTAINED ACTING 15 MG TABLET.SA PO PRN (09:45)
[2025-02-20 09:55] LABS: POTASSIUM 4.6 mmol/L (3.5-5.1)
[2025-02-20 10:47] LABS: ALBUMIN 2.2 g/dl (3.4-5.0); BLOOD UREA NITROGEN 12.5 mg/dL (7-18); CALCIUM 10.1 mg/dL (8.5-10.1)
[2025-02-20 10:50] LABS: CREATININE 0.7 mg/dL (0.55-1.3)
[2025-02-20 10:52] LABS: BILIRUBIN,TOTAL 0.3 mg/dL (0.2-1); TOT PROT 6.9 g/dl (6.4-8.2)
[2025-02-21 09:31] LABS: BASOPHILS # 0.11 x10^3/uL (0.01-0.08); EOSINOPHIL % 2.2 % (0.8-7.0); EOSINOPHILS # 0.29 x10^3/uL (0.04-0.54); HEMATOCRIT 33.9 % (40.1-51.0); MCHC 29.5 g/dl (32.3-36.5); MEAN CELL VOLUME 84.8 fl (79.0-92.2); MEAN PLT VOLUME 9.7 fl (9.4-12.4); MONOCYTE # 0.63 x10^3/uL (0.30-0.82); MONOCYTE % 4.8 % (5.3-12.2); PLATELET COUNT 590 x10^3/uL (163-337); RDW 14.4 % (12.2-16.6)
[2025-02-21 09:53] LABS: POTASSIUM 4.9 mmol/L (3.5-5.1)
[2025-02-21 10:10] LABS: CALCIUM 10.1 mg/dL (8.5-10.1)
[2025-02-21 10:11] LABS: ALBUMIN 2.2 g/dl (3.4-5.0)
[2025-02-21 10:14] LABS: CREATININE 0.8 mg/dL (0.55-1.3); TOT PROT 6.9 g/dl (6.4-8.2)
[2025-02-21 10:17] LABS: BILIRUBIN,TOTAL 0.3 mg/dL (0.2-1)
[2025-02-22] MEDS ORDERED: PANTOPRAZOLE 40 MG TABLET PO SCH (08:37)
[2025-02-22 09:05] LABS: ABSOLUTE IMMATURE GRANULOCYTES 0.46 x10^3/uL (0.0-0.031); BASOPHILS # 0.11 x10^3/uL (0.01-0.08); EOSINOPHIL % 2.7 % (0.8-7.0); EOSINOPHILS # 0.33 x10^3/uL (0.04-0.54); HEMATOCRIT 32.8 % (40.1-51.0); HEMOGLOBIN 9.8 g/dL (13.7-17.5); MCHC 29.9 g/dl (32.3-36.5); MEAN CELL VOLUME 85.4 fl (79.0-92.2); MEAN PLT VOLUME 9.7 fl (9.4-12.4); MONOCYTE # 0.63 x10^3/uL (0.30-0.82); MONOCYTE % 5.1 % (5.3-12.2); PLATELET COUNT 547 x10^3/uL (163-337); RDW 14.4 % (12.2-16.6)
[2025-02-22 09:54] LABS: POTASSIUM 4.4 mmol/L (3.5-5.1)
[2025-02-22 10:03] LABS: CALCIUM 10.1 mg/dL (8.5-10.1)
[2025-02-22 10:04] LABS: BLOOD UREA NITROGEN 17.6 mg/dL (7-18)
[2025-02-22 10:07] LABS: CREATININE 0.9 mg/dL (0.55-1.3)
[2025-02-22] MEDS: CEFPODOXIME PROXETIL 200 MG TABLET [NF] PO SCH (11:11)
[2025-02-22] MEDS: PANTOPRAZOLE 40 MG TABLET PO SCH (12:56)
[2025-02-23 00:14] VITALS: BP 130/67; PULSE 85; TEMP 97.7
== END 2025-02-22 22:45 | DRG 720 ==
LOC: JER 15:44 → JERBED 22:39 → J5S 02-12 04:01
PROVIDERS: ADMIT Internal Medicine; ATTEND Internal Medicine
PROC: 0W9B30Z Drainage of Left Pleural Cavity with Drainage Device, Percutaneous Approach (ICD-10-PCS; principal; 2025-02-13)
PROC: 0WPBX0Z Removal of Drainage Device from Left Pleural Cavity, External Approach (ICD-10-PCS; 2025-02-20)
DX: A41.9 Sepsis, unspecified organism (principal); I10 Essential (primary) hypertension; E78.5 Hyperlipidemia, unspecified; J18.9 Pneumonia, unspecified organism; I73.9 Peripheral vascular disease, unspecified; D64.9 Anemia, unspecified; J90 Pleural effusion, not elsewhere classified; Z89.511 Acquired absence of right leg below knee; Z68.1 Body mass index [BMI] 19.9 or less, adult; E44.0 Moderate protein-calorie malnutrition
CPT/HCPCS: 0241U-QW; 32557; 36415; 71045-TC-FY; 71275-TC; 76705-TC; 80048; 80053; 80076; 81003; 82607; 82728; 82803; 83540; 83550; 83605; 83615; 83735; 83880; 84484; 85025; 85610; 85730; 86140; 86704; 86708; 86803; 86850; 86900; 86901; 87040; 87070; 87075; 87081; 87086; 87102; 87116; 87205; 87206; 87210; 87340; 87389; 87517; 87635; 87651; 87899; 93005; 93010; 93971-TC; 94010; 94761; 97116-GP; 97162-GP; 99291; G0480; Q9967